=== PATIENT | male | born 1975 | race Caucasian/White ===

== ENCOUNTER 2021-02-28 00:30 | Emergency (ER) | payer OTHER ==
[~2021-02-28] VITALS: Ht 172.7 cm; Wt 70.3 kg
[2021-02-28] MEDS ORDERED: CLONAZEPAM1 MG (00:44)
[2021-02-28] MEDS ORDERED: TEMAZEPAM7.5 M1 (00:44)
[2021-02-28] MEDS ORDERED: TRAZODONE HCL150 MG (00:44)
[2021-02-28] MEDS ORDERED: PEPCID AC20 MG PO (03:42)
[2021-02-28] MEDS ORDERED: MEDROLPACK PO (03:42)
[2021-02-28] MEDS ORDERED: NORFLEX100MG PO (03:42)
[2021-02-28] MEDS ORDERED: CARAFATE1 GM PO (03:42)
[2021-02-28] MEDS ORDERED: PROTONIX20 MG PO (03:42)
== END 2021-02-28 03:51 | disposition home or self-care (01) ==
LOC: ER 00:30
DX: M54.89 Other dorsalgia (principal); K29.70 Gastritis, unspecified, without bleeding